=== PATIENT | male | born 1965 | race American Indian/Alaskan Native ===

== ENCOUNTER 2020-12-25 14:40 | Emergency (ER) | payer SELFPAY ==
[2020-12-25 14:51] VITALS: BP 145/99
--- NOTE | 2020-12-25 15:06 | Emergency Department Report ---
Chief Complaint: Sore Throat Stated Complaint: PAIN IN THROAT - HPI History of Present Illness: 55-year-old -[place] male presents to the emergency room complaining of a sore throat and neck tenderness x6 to 7 days. Patient last took Tylenol 14 hours ago. Patient states that the pain is worse on the right side when he swallows. Patient denies any nausea vomiting no diarrhea. Able to speak in complete sentences. He is followed by Dr. Anjana Hodge. He has hypertension but has been off his medications since September 2020. - Exam Vital Signs: Vital Signs 12/25/20 14:49 Temperature 98.0 F Pulse Rate 96 H Respiratory 16 Rate Blood Pressure 145/99 O2 Sat by Pulse 100 Oximetry Physical Exam: Patient is alert and oriented x3 no acute distress nontoxic in appearance HEENT NT. Oromucosa is moist no tonsillary hypertrophy no exudate nonerythematous oral pharynx is patent. Mild tonsillar tenderness when palpating of the neck. Chest clear to auscultation bilateral no accessory muscles use Cardiac regular rate and rhythm no murmurs appreciated. Patient is ambulatory without difficulties. MSE screening note: Focused history and physical exam performed. Due to findings the following was ordered: 55-year-old -[place] male presents to the emergency room complaining of a sore throat and neck tenderness x6 to 7 days. Patient last took Tylenol 14 hours ago. Patient states that the pain is worse on the right side when he swallows. Patient denies any nausea vomiting no diarrhea. Able to speak in complete sentences. He is followed by Dr. Anjana Hodge. He has hypertension but has been off his medications since September 2020. Patient's vital signs are stable. Patient physical examination is unremarkable. I discussed with patient to try [id number] ibuprofen or Aleve for pain management. He can continue warm salt gargles. He needs to follow-up with his primary care provider to address his hypertension and refills of his medication as well as a sore throat. ED Disposition for MSE Disposition: Z- MED SCREENING EXAM-LEFT Is pt being admited?: No Does the pt Need Aspirin: No Condition: Stable Additional Instructions: Recommend ibuprofen or Aleve for pain management. Warm salt water gargles. Follow-up with your primary care provider. Referrals: ANJANA HODGE NP-C [Referring] - 3-5 Days
== END 2020-12-25 15:28 | disposition left against medical advice (07) ==
LOC: ED 14:40
DX: R07.0 Pain in throat (principal); Z53.21 Procedure and treatment not carried out due to patient leaving prior to being seen by health care provider

== ENCOUNTER 2021-06-29 09:49 | Outpatient (CLI) | payer OTHER ==
[2021-06-29 10:28] LABS: Basophils % (Auto) 0.6 % (0.0-1.8); Eosinophils # (Auto) 0.1 K/mm3 (0.0-0.4); Eosinophils % (Auto) 1.2 % (0.0-4.3); Hematocrit 37.8 % (35.5-45.6); Hemoglobin 12.6 gm/dl (11.8-15.2); Lymphocytes # (Auto) 2.2 K/mm3 (1.2-5.4); Lymphocytes % (Auto) 48.2 % (13.4-35.0); Mean Corpuscular HGB Conc 33 % (32-34); Mean Corpuscular Volume 94 fl (84-94); Monocytes # (Auto) 0.4 K/mm3 (0.0-0.8); Monocytes % (Auto) 8.8 % (0.0-7.3); Platelet Count 303 K/mm3 (140-440); Red Blood Count 4.02 M/mm3 (3.65-5.03); Red Cell Distribution Width 13.9 % (13.2-15.2)
[2021-06-29 10:39] LABS: Bilirubin,Urine NEG (Negative); Blood,Urine NEG (Negative); Color,Urine Yellow (Yellow); Protein,Urine <15 mg/dL mg/dL (Negative)
[2021-06-29 11:05] LABS: Alanine Aminotransferase 21 units/L (7-56); Albumin 4.3 g/dL (3.9-5); BUN/Creatinine Ratio 16; Blood Urea Nitrogen 13 mg/dL (9-20); Calcium 9.5 mg/dL (8.4-10.2); HDL Cholesterol 34 mg/dL (40-59); Hemolysis Index 3; LDL Cholesterol,Direct 109 mg/dL (50-130)
[2021-06-29 12:43] LABS: Hepatitis C Virus Antibody Non-Reactive (NonReactive)
[2021-06-29 13:01] LABS: Hepatitis B Surface Antigen Reactive (Negative)
== END 2021-06-29 09:50 | disposition home or self-care (01) ==
LOC: LAB 09:49
PROVIDERS: ATTEND Internal Medicine
DX: Z13.1 Encounter for screening for diabetes mellitus (principal); Z00.00 Encounter for general adult medical examination without abnormal findings; Z13.29 Encounter for screening for other suspected endocrine disorder; E55.9 Vitamin D deficiency, unspecified; B19.10 Unspecified viral hepatitis B without hepatic coma; R39.11 Hesitancy of micturition; N39.0 Urinary tract infection, site not specified
CPT/HCPCS: 36415; 80053; 80061; 80074; 81001; 82306; 83036; 84153; 84443; 85025

== ENCOUNTER 2021-09-05 11:26 | Outpatient (CLI) | payer OTHER ==
[2021-09-05 12:15] LABS: Alanine Aminotransferase 26 units/L (7-56); Albumin 4.5 g/dL (3.9-5); BUN/Creatinine Ratio 14; Blood Urea Nitrogen 13 mg/dL (9-20); Calcium 9.6 mg/dL (8.4-10.2); Hemolysis Index 4
== END 2021-09-05 11:27 | disposition home or self-care (01) ==
LOC: LAB 11:26
PROVIDERS: ATTEND Internal Medicine Gastroenterology
DX: B18.1 Chronic viral hepatitis B without delta-agent (principal)
CPT/HCPCS: 36415; 80053; 86707; 87350; 87517

== ENCOUNTER 2021-09-28 09:36 | Outpatient (CLI) | payer OTHER ==
--- NOTE | 2021-09-28 11:19 | Ultrasound Report ---
. LIMITED RUQ ABDOMINAL ULTRASOUND INDICATION: CHRONIC VIRAL HEP B. COMPARISON: No relevant prior imaging study available. FINDINGS: Pancreas: Visualized portions show no significant abnormality. Abdominal Aorta: No significant abnormality. IVC: No significant abnormality. Liver: The liver measures 16.5 cm in length. No significant abnormality. Normal hepatopedal blood matt w in the main portal vein. Gallbladder: No significant abnormality. Bile ducts: No significant abnormality. Common bile duct measures 3.8 mm. Right kidney: No significant abnormality visualized.. Free fluid: None. Additional Findings: None. IMPRESSION: 1. Normal exam. Signer Name: Peña Betts MD Signed: 09/28/2021 11:15 AM Workstation Name: [id number]
== END 2021-09-28 09:37 | disposition home or self-care (01) ==
LOC: US 09:36
PROVIDERS: ATTEND Internal Medicine Gastroenterology
DX: B18.1 Chronic viral hepatitis B without delta-agent (principal)
CPT/HCPCS: 76705

== ENCOUNTER 2022-03-08 10:26 | Outpatient (CLI) | payer OTHER ==
[2022-03-08 11:09] LABS: Basophils % (Auto) 0.8 % (0.0-1.8); Eosinophils # (Auto) 0.1 K/mm3 (0.0-0.4); Eosinophils % (Auto) 1.6 % (0.0-4.3); Hematocrit 38.6 % (35.5-45.6); Hemoglobin 12.5 gm/dl (11.8-15.2); Lymphocytes % (Auto) 40.7 % (13.4-35.0); Mean Corpuscular HGB Conc 33 % (32-34); Mean Corpuscular Volume 90 fl (84-94); Monocytes # (Auto) 0.5 K/mm3 (0.0-0.8); Monocytes % (Auto) 9.4 % (0.0-7.3); Platelet Count 282 K/mm3 (140-440); Red Cell Distribution Width 14.2 % (13.2-15.2)
[2022-03-08 11:41] LABS: Alanine Aminotransferase 25 units/L (7-56); Albumin 4.6 g/dL (3.9-5); BUN/Creatinine Ratio 21; Blood Urea Nitrogen 17 mg/dL (9-20); Calcium 9.7 mg/dL (8.4-10.2); Chol/HDL Ratio 5.15 %; HDL Cholesterol 38 mg/dL (40-59); Hemolysis Index 5; LDL Cholesterol,Direct 153 mg/dL (50-130)
== END 2022-03-08 10:27 | disposition home or self-care (01) ==
LOC: LAB 10:26
PROVIDERS: ATTEND Internal Medicine
DX: Z00.00 Encounter for general adult medical examination without abnormal findings (principal); I10 Essential (primary) hypertension; R73.03 Prediabetes; R39.11 Hesitancy of micturition; E55.9 Vitamin D deficiency, unspecified; E78.5 Hyperlipidemia, unspecified
CPT/HCPCS: 36415; 80053; 80061; 82306; 83036; 84153; 84443; 85025

== ENCOUNTER 2022-05-23 10:05 | Outpatient (CLI) | payer OTHER ==
--- NOTE | 2022-05-23 12:47 | XRay Report ---
Left knee 2 views INDICATION: Left knee pain IMPRESSION: Small left knee effusion. 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 Signer Name: Carlos Short MD Signed: 05/23/2022 12:42 PM Workstation Name: [id number]
== END 2022-05-23 10:06 | disposition home or self-care (01) ==
LOC: XRAY 10:05
PROVIDERS: ATTEND Internal Medicine
DX: M17.12 Unilateral primary osteoarthritis, left knee (principal); M25.462 Effusion, left knee; R94.6 Abnormal results of thyroid function studies
CPT/HCPCS: 36415; 84439; 84480